=== PATIENT | female | born 1945 | race Caucasian/White ===

== ENCOUNTER 2024-05-08 09:23 | Outpatient (CLI) | payer MEDICARE ==
[2024-05-08 10:34] LABS: #Basophils 0.03 10x3/uL (0.0-0.2); #Monocytes 0.46 10x3/uL (0.0-1.1); #Neutrophils 2.09 10x3/uL (1.5-8.4); %Basophils 0.8 % (0.0-2.0); %Eosinophils 2.8 % (0.0-6.0); %Lymphocytes 25.5 % (18.0-47.0); %Monocytes 12.7 % (0.0-10.0); %Neutrophils 57.9 % (40.0-75.0); Hematocrit 28.2 % (34.9-44.5); Hemoglobin 8.5 g/dL (12.0-15.5); Mean Corpuscular HGB CONC 30.1 g/dL (32.0-36.0); Mean Corpuscular Hemoglobin 23.2 pg (27.0-33.0); Mean Corpuscular Volume 76.8 fL (81.6-98.3); Mean Platelet Volume 10.9 fL (7.4-10.4); Platelet Count 235 10x3/uL (150-450); RBC Distribution Width 15.4 % (11.5-14.5); Red Blood Cell (RBC) Count 3.67 10x6/uL (3.90-5.03); White Blood Cell (WBC) Count 3.6 10x3/uL (3.5-10.5)
[2024-05-08 11:05] LABS: Anion Gap 11 mmol/L (10-20); BUN (Urea Nitrogen) 17 mg/dL (9.8-20.1); Calc. Creatinine Clearance 0 mL/min (70-130); Calcium 10.1 mg/dL (7.8-10.44); Carbon Dioxide 29 mmol/L (23-31); Chloride 106 mmol/L (98-107); Estimated GFR 40; Glucose 195 mg/dL (83-110); Sodium 142 mmol/L (136-145)
[2024-05-08 14:50] LABS: Hemoglobin A1c 7.6 % (4.0-6.0)
== END 2024-05-08 09:24 | disposition home or self-care (01) ==
LOC: CSHLAB 09:23
PROVIDERS: ATTEND Surgery
DX: Z01.812 Encounter for preprocedural laboratory examination (principal); D49.0 Neoplasm of unspecified behavior of digestive system
CPT/HCPCS: 80048; 83036; 85025

== ENCOUNTER 2024-05-08 10:30 | Inpatient (IN) | payer MEDICARE ==
[2024-05-08 09:42] VITALS: BMI 24.7
[2024-05-14] MEDS ORDERED: PROPOFOL 200 MG/20 ML VIAL ONE (07:13)
[2024-05-14] MEDS ORDERED: Ondansetron PF 4 MG/2 ML Vial ONE (07:13)
[2024-05-14] MEDS ORDERED: Rocuronium Bromide 10 MG/ML (10ML VIAL) ONE (07:13)
[2024-05-14] MEDS ORDERED: fentaNYL 50 mcg/mL 1 mL Vial ONE (07:13)
[2024-05-14] MEDS ORDERED: Lidocaine 2% PF 5 ML VIAL ONE (07:13)
[2024-05-14] MEDS ORDERED: Ketorolac Tromethamine 30 MG (1 mL) VIAL ONE (07:13)
[2024-05-14] MEDS ORDERED: SUGAMMADEX SODIUM 200 MG/2 ML VIAL ONE (07:13)
[2024-05-14] MEDS ORDERED: Bupivacaine/Epinephrine 0.25% 30 ML VIAL ONE (09:08)
[2024-05-14] MEDS ORDERED: Morphine 4 MG/ML VIAL ONE (12:11)
[2024-05-14] MEDS ORDERED: Acetaminophen 500 MG TAB ONE ×2 (13:11→20:58)
[2024-05-14] MEDS ORDERED: oxyCODONE 5 MG TAB ONE ×2 (16:06→20:58)
[2024-05-15] MEDS ORDERED: oxyCODONE 5 MG TAB ONE ×2 (01:17→08:58)
[2024-05-15] MEDS ORDERED: traMADol HCl 50 MG TAB ONE (06:37)
[2024-05-15] MEDS ORDERED: Acetaminophen 500 MG TAB ONE ×2 (06:37→13:42)
[2024-05-15] MEDS ORDERED: Nebivolol HCl 5 MG TAB ONE (08:18)
[2024-05-15] MEDS ORDERED: Enoxaparin 40 MG (0.4 mL) SYRINGE ONE (08:18)
[2024-05-15] MEDS ORDERED: Pantoprazole DR 40 MG TAB ONE (08:18)
[2024-05-15] MEDS ORDERED: Montelukast Sodium 10 mg Tablet ONE (08:19)
[2024-05-15] MEDS ORDERED: Ondansetron PF 4 MG/2 ML Vial ONE (09:05)
[2024-05-15] MEDS ORDERED: Lorazepam 1 MG TAB PO SCH (12:05)
[2024-05-15] MEDS ORDERED: Lorazepam 1 MG TAB ONE (12:25)
== END 2024-05-15 15:30 | disposition home or self-care (01) | DRG 828 ==
LOC: CSHTELE 05-14 06:53 → EDSTATUS 05-14 10:30
PROVIDERS: ADMIT Surgery; ATTEND Surgery
PROC: 0DB84ZZ Excision of Small Intestine, Percutaneous Endoscopic Approach (ICD-10-PCS; principal; 2024-05-14)
PROC: 8E0W4CZ Robotic Assisted Procedure of Trunk Region, Percutaneous Endoscopic Approach (ICD-10-PCS; 2024-05-14)
DX: D3A.8 Other benign neuroendocrine tumors (principal); J06.9 Acute upper respiratory infection, unspecified; Z79.899 Other long term (current) drug therapy; E78.00 Pure hypercholesterolemia, unspecified; E11.9 Type 2 diabetes mellitus without complications; Z90.710 Acquired absence of both cervix and uterus; Z90.49 Acquired absence of other specified parts of digestive tract
CPT/HCPCS: 36416; 88307; 88341; 88342; 88360; J1885; J2272; J2405; J2704; J3010; S2900